=== PATIENT | female | born 1995 | race Caucasian/White ===

== ENCOUNTER 2017-08-26 06:49 | Day surgery (SDC) | payer BC ==
[~2017-08-26 06:49] MED LIST: Lactated Ringers 1,000 ML IV SCH; Sodium Chloride 0.9% 10 ML Syringe FLUSH PRN; Sodium Chloride 0.9% 2.5 ML Syringe FLUSH PRN; ceFAZolin 2 GM in Premix Bag 1 BAG IV ONE
[2017-08-26] MEDS ORDERED: Scopolamine 1.5 MG Transdermal Patch TRDERM PRN (07:35)
--- NOTE | 2017-08-26 07:37 | PCM.PREANE ---
Preanesthetic Assessment - Anesthesia/Transfusion/Family Hx Anesthesia History: Prior Anesthesia Without Reaction Family History of Anesthesia Reaction: No Transfusion History: No Prior Transfusion(s) Intubation History: Unknown - Review of Systems General: No Symptoms Pulmonary: No Symptoms Cardiovascular: No Symptoms Gastrointestinal: Abdominal Pain Neurological: No Symptoms Other: Reports: None - Physical Assessment O2 Sat by Pulse Oximetry: 96 Respiratory Rate: 16 Vital Signs: Last Vital Signs Temp 36.2 C 08/26/17 07:10 Pulse 108 H 08/26/17 07:10 Resp 16 08/26/17 07:10 BP 169/97 H 08/26/17 07:10 Pulse Ox 96 08/26/17 07:10 Height: 1.68 m Weight: 94.801 kg ASA Class: 2 Mental Status: Alert & Oriented x3 Airway Class: Mallampati = 2 Dentition: Reports: Normal Dentition Thyro-Mental Finger Breadths: 3 Mouth Opening Finger Breadths: 2 ROM/Head Extension: Full Lungs: Clear to Auscultation, Normal Respiratory Effort Cardiovascular: Regular Rate, Regular Rhythm - Allergies Allergies/Adverse Reactions: Allergies Allergy/AdvReac Type Severity Reaction Status Date / Time No Known Allergies Allergy Verified 08/23/17 12:30 - Blood Blood Available: No - Anesthesia Plan Pre-Op Medication Ordered: None - Acknowledgements Anesthesia Type Planned: General Anesthesia Pt an Appropriate Candidate for the Planned Anesthesia: Yes Alternatives and Risks of Anesthesia Discussed w Pt/Guardian: Yes Pt/Guardian Understands and Agrees with Anesthesia Plan: Yes PreAnesthesia Questionnaire HEENT History: Reports: Other (See Below) Other HEENT History: wears glasses/contacts Gastrointestinal History: Reports: Other (See Below) (cholecystitis) Psychiatric History: Reports: Anxiety Endocrine/Metabolic History: Reports: Obesity/BMI 30+ Dermatologic History: Reports: Psoriasis - Past Surgical History Head Surgeries/Procedures: Reports: None HEENT Surgical History: Reports: Oral Surgery Other HEENT Surgeries/Procedures: wisdom teeth extraction - SUBSTANCE USE Smoking Status *Q: Never Smoker Recreational Drug Use History: No - HOME MEDS Home Medications: Home Meds Norethindrone-Ethinyl Estrad [Ortho-Novum 1-35-28 Tablet] 1 tab PO ASDIRECTED [History] buPROPion [Wellbutrin XL] 150 mg PO DAILY 08/23/17 [History] - CURRENT (IN HOUSE) MEDS Current Meds: Current Medications Lactated Ringer's (Ringers, Lactated) 1,000 mls @ 125 mls/hr IV ASDIRECTED PARKER Last Admin: 08/26/17 07:15 Dose: 125 mls/hr Sodium Chloride (Saline Flush) 10 ml FLUSH ASDIRECTED PRN PRN Reason: Keep Vein Open Sodium Chloride (Saline Flush) 2.5 ml FLUSH ASDIRECTED PRN PRN Reason: Keep Vein Open Discontinued Medications Cefazolin Sodium/Dextrose 2 gm (/ Premix) 50 mls @ 100 mls/hr IV ONETIME ONE Stop: 08/25/17 17:10
[2017-08-26] MEDS ORDERED: Lidocaine 2% 5 ML SDV ONE (07:38)
[2017-08-26] MEDS ORDERED: Midazolam 1 MG/ML 2 ML SDV ONE (07:38)
[2017-08-26] MEDS ORDERED: fentaNYL 100 MCG/2 ML SDV ONE ×3 (07:38→09:26)
[2017-08-26] MEDS ORDERED: Propofol 200 MG/20 ML SDV ONE ×2 (07:38→09:00)
[2017-08-26] MEDS ORDERED: Neostigmine Methylsulfate 1 MG/ML 5 ML Syringe ONE (07:39)
[2017-08-26] MEDS ORDERED: Ondansetron 4 MG/2 ML SDV ONE (07:39)
[2017-08-26] MEDS ORDERED: Ketorolac 30 MG/ML SDV ONE (07:39)
[2017-08-26] MEDS ORDERED: Rocuronium 10 MG/ML 10 ML Syringe ONE (07:39)
[2017-08-26] MEDS ORDERED: Scopolamine 1.5 MG Transdermal Patch ONE (07:42)
[2017-08-26] MEDS ORDERED: HYDROmorphone 2 MG/ML Syringe ONE (07:46)
[2017-08-26] MEDS ORDERED: fentaNYL 100 MCG/2 ML SDV IVPUSH PRN (08:58)
[2017-08-26] MEDS ORDERED: Acetaminophen/oxyCODONE 325-5 MG Tab PO PRN (10:28)
[2017-08-26] MEDS ORDERED: Cyclobenzaprine 10 MG Tab PO PRN (10:28)
[2017-08-26] MEDS ORDERED: HYDROmorphone 2 MG/ML Syringe IVPUSH ONE (10:30)
--- NOTE | 2017-08-26 10:30 | PCM.OPNOTE ---
- General Post-Op/Procedure Note Date of Surgery/Procedure: 08/26/17 Operative Procedure(s): laparoscopic cholecystectomy Findings: Mildly distended gallbladder with minimal omental attachments Pre Op Diagnosis: biliary dyskinesia Post-Op Diagnosis: same Anesthesia Technique: General ET Tube Primary Surgeon: Darcy Carrasco Fluid Replacement, Intraop: 2,650 Output, Urine Amount: 130 EBL in mLs: 10 Condition: Good
[2017-08-26] MEDS ORDERED: Labetalol 100 MG/20 ML MDV ONE (11:00)
[2017-08-26] MEDS ORDERED: Labetalol 100 MG/20 ML MDV IVPUSH ONE (11:05)
--- NOTE | 2017-08-26 13:00 | OR ---
SURGEON: BRYAN HARVEY MD DATE OF PROCEDURE: 08/26/2017 PREOPERATIVE DIAGNOSIS: Biliary dyskinesia. POSTOPERATIVE DIAGNOSIS: Biliary dyskinesia. PROCEDURE PERFORMED: Laparoscopic cholecystectomy. ANESTHESIA: General endotracheal anesthesia. FLUIDS: 2650 mL crystalloid. URINE OUTPUT: 130 mL. ESTIMATED BLOOD LOSS: 10 mL. FINDINGS: Mildly distended gallbladder with minimal omental adhesions. COMPLICATIONS: None. INDICATIONS: The patient is a 21-year-old female, who presented to clinic with a HIDA scan showing an ejection fraction of 4% consistent with biliary dyskinesia. A decision was made to proceed with removal of her gallbladder. We discussed the laparoscopic and open approaches. I will attempt this laparoscopically, but should I be unable to perform it safely, I will convert to open. We discussed the expected perioperative course as well as the risks including bleeding, infection, or damage to surrounding structures. The patient verbalized understanding and wishes to proceed. PROCEDURE IN DETAIL: The patient was brought into the operating room and placed on the OR table in supine position. A time-out was completed verifying the patient's name, age, date of , allergies, and procedure to be performed. General endotracheal anesthesia was induced. The patient's left arm was tucked at her side and the footboard placed at the end of the bed. A Salazar catheter was placed. The abdomen was prepped and draped in usual standard fashion. The infraumbilical fold was anesthetized with 0.5% Marcaine plain. An 11 blade was used to make a horizontal incision along the infraumbilical fold. Cautery was used to dissect down to the subcutaneous fat. The S retractors and [place] retractors were used to dissect down to the level of fascia. This was difficult given that the patient had a large amount of subcutaneous fat. The fascia was grasped with Attila's and incised using Vivar scissors. I then dissected down to the level of the peritoneum. This was grasped with 2 tonsil retractors, elevated, and incised. A 12 mm Kash trocar was then placed into the abdomen. The abdomen was allowed to insufflate. An 0 Vicryl suture was placed on either side of the fascia and used to secure the Kash trocar in place. The patient was then placed into reverse Trendelenburg position and airplaned slightly to the left. Three trocars were placed in the following locations, one in epigastric area, one in the right flank, and one in the right subcostal area along the midclavicular line. The dome of the gallbladder was grasped with an atraumatic grasper through the right lateral port and elevated above the dome of the liver. There were some small omental adhesions that were taken down with gentle dissection. The infundibulum was then grasped with an atraumatic grasper and retracted to right and inferiorly. Using a combination of gentle blunt dissection, I was able to take down the peritoneal attachments around the infundibulum and expose the cystic duct and artery. Once my critical view was achieved, I doubly clipped and ligated both the cystic duct and artery. After ligating the cystic artery, one of my proximal clips fell off. I attempted to place a 2nd clip below the clip that was still on the artery, but was only able to get this fpc across. No bleeding was noted and the decision was made to defer any further attempts at trying to place more clips given the risk for damaging the artery. Electrocautery was then used to dissect the gallbladder off the gallbladder fossa. While doing this, a small rent was made in the gallbladder and bile was spilled into the abdomen. Once the gallbladder was free of the liver bed, it was placed in an EndoCatch bag and removed through the 12 mm port. This was replaced and the abdomen allowed to re-insufflate. I then inspected the area of my clips. No bleeding was noted along my clips and they appeared to be secure. The operative site was hemostatic. The abdomen was irrigated with 2 L of normal saline until it ran clear. The ports were then removed under direct visualization. The abdomen was allowed to desufflate. The fascia at the infraumbilical site was closed with interrupted 0 Vicryl sutures. The skin was then closed with interrupted 3-0 Vicryl in the subcutaneous fat and a running subcuticular 4-0 Monocryl stitch. The 5 mm port sites were closed with interrupted 4-0 Monocryl. Steri-Strips and sterile dressings were applied. The patient was transferred to the PACU in stable condition. STANLEY LOZANO /[id number]
== END 2017-08-26 12:55 | disposition home or self-care (01) ==
LOC: MW.SDS 06:49
PROVIDERS: ATTEND Surgery
DX: K81.1 Chronic cholecystitis (principal); F41.9 Anxiety disorder, unspecified; E66.9 Obesity, unspecified; Z68.54 Body mass index [BMI] pediatric, 95th percentile for age to less than 120% of the 95th percentile for age; Z98.890 Other specified postprocedural states; Z79.3 Long term (current) use of hormonal contraceptives; Z79.899 Other long term (current) drug therapy
CPT/HCPCS: 47562; 81025; A9270; J1170; J2250; J2405; J3010; J7120; 00790; 88304; J1885; J2704

== ENCOUNTER 2018-02-11 16:59 | Emergency (ER) | payer BC ==
[2018-02-11] MEDS ORDERED: Sodium Chloride 0.9% 1,000 ML IV ONE (17:51)
[2018-02-11 18:35] LABS: CHLORIDE,CL 103 mmol/L (98-107); SODIUM,NA 139 mmol/L (136-145)
--- NOTE | 2018-02-11 19:18 | EDM.PDOC ---
ED HPI GENERAL MEDICAL PROBLEM - General Chief Complaint: Abdominal Pain Stated Complaint: ABD PAIN Time Seen by Provider: 02/11/18 17:40 Source of Information: Reports: Patient History Limitations: Reports: No Limitations - History of Present Illness INITIAL COMMENTS - FREE TEXT/NARRATIVE: HISTORY AND PHYSICAL: History of present illness: [Patient comes to the emergency room complaining of lower abdominal discomfort and loose stools. She returned home 48 hours ago after a two-week trip to [place] to visit family. She visited the country of [place], [place], and [facility]. She primarily visited high tourist areas. For the past 24 hours she's had some achy crampy discomfort in her low abdomen and loose stools. They were foul-smelling but this has improved. No blood in her stools. She spent feverish at times but this resolves with Advil or Tylenol. She has not had any nausea or vomiting. Her appetite has been less due to her symptoms. No headaches or sore throat. No runny nose. Denies chest pain shortness of breath difficulty breathing and cough. No swelling to her feet or lower legs. She feels a little dehydrated and kind of weak. She took one dose of Pepto-Bismol which did not improve her symptoms yesterday. Describes her abdominal pain as similar to a menstrual period and improves after having a bowel movement. Had her gallbladder removed August 2017. Patient does not drink alcohol or smoke.] Review of systems: As per history of present illness and below otherwise all systems reviewed and negative. Past medical history: As per history of present illness and as reviewed below otherwise noncontributory. Surgical history: As per history of present illness and as reviewed below otherwise noncontributory. Social history: No reported history of drug or alcohol abuse. Family history: As per history of present illness and as reviewed below otherwise noncontributory. Physical exam: HEENT: Atraumatic, normocephalic. Oral mucous membranes are pink and slightly dry. Neck supple, no lymphadenopathy. Eyes are clear and anicteric. Lungs: Clear to auscultation, breath sounds equal bilaterally. Heart: S1S2, regular, negative for clicks, rubs, or JVD. Abdomen: Bowel sounds are present throughout. Abdomen is soft and nondistended. She is mildly tender over the right upper quadrant. No masses guarding or rebound. No CVA tenderness. Pelvis: Stable nontender. Genitourinary: Deferred. Rectal: Deferred. Extremities: Atraumatic, negative for cords or calf pain. Swelling or cyanosis to feet or lower legs. Neurovascular unremarkable. Neuro: Awake, alert, oriented. Motor and sensory unremarkable throughout. Exam nonfocal. Diagnostics: [CBC, CMP, urinalysis, urine , stool culture for Campylobacter and Shigella.] Therapeutics: [1 L normal saline] Impression: [Loose stools] Plan: [Lab results show white blood cell 8.27, hemoglobin 14.1. CMP is largely unremarkable other than liver enzymes. AST 42. ALT 82. Alkaline phosphatase 169. Bilirubin 0.3. Urinalysis clear and urine is negative. Discussed with patient that her labs are largely unremarkable and symptoms are consistent with those of traveler's diarrhea. Recommend she take a stool sample and bring it in when available. Will start azithromycin 500 mg daily for the next 5 days. Close follow-up with primary care to recheck elevated liver enzymes. Strictured her precautions are reviewed with the patient she is in agreement with today's discussion. Mom is at bedside and all of her questions are answered and concerns are addressed.] Definitive disposition and diagnosis as appropriate pending reevaluation and review of above. RLQ Pain Score (Numeric/FACES): 1 - Related Data Allergies Allergy/AdvReac Type Severity Reaction Status Date / Time No Known Allergies Allergy Verified 02/11/18 17:12 Home Meds: Home Meds Norethindrone-Ethinyl Estrad [Ortho-Novum 1-35-28 Tablet] 1 tab PO ASDIRECTED [History] buPROPion [Wellbutrin XL] 150 mg PO DAILY 08/23/17 [History] Past Medical History HEENT History: Reports: Other (See Below) Other HEENT History: wears glasses/contacts Gastrointestinal History: Reports: Other (See Below) (cholecystitis) Psychiatric History: Reports: Anxiety Endocrine/Metabolic History: Reports: Obesity/BMI 30+ Dermatologic History: Reports: Psoriasis - Past Surgical History Head Surgeries/Procedures: Reports: None HEENT Surgical History: Reports: Oral Surgery Other HEENT Surgeries/Procedures: wisdom teeth extraction GI Surgical History: Reports: Cholecystectomy Social & Family History - Family History Family Medical History: Noncontributory - Tobacco Use Smoking Status *Q: Never Smoker - Caffeine Use Caffeine Use: Reports: Coffee - Recreational Drug Use Recreational Drug Use: No ED ROS GENERAL - Review of Systems Review Of Systems: ROS reveals no pertinent complaints other than HPI. ED EXAM, GI/ABD - Physical Exam Exam: See Below Course - Vital Signs Last Recorded V/S: Last Vital Signs Temp 96.2 F 02/11/18 17:12 Pulse 119 H 02/11/18 17:12 Resp 18 02/11/18 17:12 BP 155/95 H 02/11/18 17:12 Pulse Ox 98 02/11/18 17:12 - Orders/Labs/Meds Orders: Active Orders 24 hr Category Date Time Status CULTURE STOOL + CAMPY+SHIGATOX [RM] Stat Lab 02/11/18 17:42 Ordered HCG QUALITATIVE,URINE [URCHEM] Stat Lab 02/11/18 17:55 Ordered UA W/MICROSCOPIC [URIN] Stat Lab 02/11/18 17:55 Ordered Labs: Laboratory Tests 02/11/18 02/11/18 02/11/18 Range/Units 17:49 17:49 17:55 WBC 8.27 (4.0-11.0) K/uL RBC 5.06 (4.30-5.90) M/uL Hgb 14.1 (12.0-16.0) g/dL Hct 41.9 (36.0-46.0) % MCV 82.8 (80.0-98.0) fL MCH 27.9 (27.0-32.0) pg MCHC 33.7 (31.0-37.0) g/dL RDW Std Deviation 40.4 (28.0-62.0) fl RDW Coeff of Ester 14 (11.0-15.0) % Plt Count 272 (150-400) K/uL MPV 9.70 (7.40-12.00) fL Neut % (Auto) 79.1 (48.0-80.0) % Lymph % (Auto) 11.9 L (16.0-40.0) % Marshall % (Auto) 8.5 (0.0-15.0) % Eos % (Auto) 0.4 (0.0-7.0) % Baso % (Auto) 0.1 (0.0-1.5) % Neut # (Auto) 6.6 H (1.4-5.7) K/uL Lymph # (Auto) 1.0 (0.6-2.4) K/uL Marshall # (Auto) 0.7 (0.0-0.8) K/uL Eos # (Auto) 0.0 (0.0-0.7) K/uL Baso # (Auto) 0.0 (0.0-0.1) K/uL Nucleated RBC % 0.0 /100WBC Nucleated RBCs # 0 K/uL Sodium 139 (136-145) mmol/L Potassium 3.8 (3.5-5.1) mmol/L Chloride 103 (98-107) mmol/L Carbon Dioxide 23.5 (21.0-32.0) mmol/L BUN 7 (7.0-18.0) mg/dL Creatinine 0.9 (0.6-1.0) mg/dL Est Cr Clr Drug Dosing 89.72 mL/min Estimated GFR (MDRD) > 60.0 ml/min Glucose 97 (74-106) mg/dL Calcium 9.3 (8.5-10.1) mg/dL Total Bilirubin 0.3 (0.2-1.0) mg/dL AST 42 H (15-37) IU/L ALT 82 H (14-63) IU/L Alkaline Phosphatase 169 H (46-116) U/L Total Protein 7.7 (6.4-8.2) g/dL Albumin 3.4 (3.4-5.0) g/dL Globulin 4.3 H (2.0-3.5) g/dL Albumin/Globulin Ratio 0.8 L (1.3-2.8) Urine Color YELLOW Urine Appearance CLEAR Urine pH 6.5 (5.0-8.0) Ur Specific [place] 1.010 (1.001-1.035) Urine Protein NEGATIVE (NEGATIVE) mg/dL Urine Glucose (UA) NEGATIVE (NEGATIVE) mg/dL Urine Ketones NEGATIVE (NEGATIVE) mg/dL Urine Occult Blood NEGATIVE (NEGATIVE) Urine Nitrite NEGATIVE (NEGATIVE) Urine Bilirubin NEGATIVE (NEGATIVE) Urine Urobilinogen 0.2 (<2.0) EU/dL Ur Leukocyte Esterase NEGATIVE (NEGATIVE) Urine RBC 0-1 (0-2/HPF) Urine WBC 0-1 (0-5/HPF) Ur Epithelial Cells RARE (NONE-FEW) Urine Bacteria RARE (NEGATIVE) Urine HCG, Qual (NEGATIVE) 02/11/18 Range/Units 17:55 WBC (4.0-11.0) K/uL RBC (4.30-5.90) M/uL Hgb (12.0-16.0) g/dL Hct (36.0-46.0) % MCV (80.0-98.0) fL MCH (27.0-32.0) pg MCHC (31.0-37.0) g/dL RDW Std Deviation (28.0-62.0) fl RDW Coeff of Ester (11.0-15.0) % Plt Count (150-400) K/uL MPV (7.40-12.00) fL Neut % (Auto) (48.0-80.0) % Lymph % (Auto) (16.0-40.0) % Marshall % (Auto) (0.0-15.0) % Eos % (Auto) (0.0-7.0) % Baso % (Auto) (0.0-1.5) % Neut # (Auto) (1.4-5.7) K/uL Lymph # (Auto) (0.6-2.4) K/uL Marshall # (Auto) (0.0-0.8) K/uL Eos # (Auto) (0.0-0.7) K/uL Baso # (Auto) (0.0-0.1) K/uL Nucleated RBC % /100WBC Nucleated RBCs # K/uL Sodium (136-145) mmol/L Potassium (3.5-5.1) mmol/L Chloride (98-107) mmol/L Carbon Dioxide (21.0-32.0) mmol/L BUN (7.0-18.0) mg/dL Creatinine (0.6-1.0) mg/dL Est Cr Clr Drug Dosing mL/min Estimated GFR (MDRD) ml/min Glucose (74-106) mg/dL Calcium (8.5-10.1) mg/dL Total Bilirubin (0.2-1.0) mg/dL AST (15-37) IU/L ALT (14-63) IU/L Alkaline Phosphatase (46-116) U/L Total Protein (6.4-8.2) g/dL Albumin (3.4-5.0) g/dL Globulin (2.0-3.5) g/dL Albumin/Globulin Ratio (1.3-2.8) Urine Color Urine Appearance Urine pH (5.0-8.0) Ur Specific [place] (1.001-1.035) Urine Protein (NEGATIVE) mg/dL Urine Glucose (UA) (NEGATIVE) mg/dL Urine Ketones (NEGATIVE) mg/dL Urine Occult Blood (NEGATIVE) Urine Nitrite (NEGATIVE) Urine Bilirubin (NEGATIVE) Urine Urobilinogen (<2.0) EU/dL Ur Leukocyte Esterase (NEGATIVE) Urine RBC (0-2/HPF) Urine WBC (0-5/HPF) Ur Epithelial Cells (NONE-FEW) Urine Bacteria (NEGATIVE) Urine HCG, Qual NEGATIVE (NEGATIVE) Meds: Medications Discontinued Medications Generic Name Dose Route Start Last Admin Trade Name Freq PRN Reason Stop Dose Admin Sodium Chloride 1,000 mls @ 999 mls/hr 02/11/18 17:51 02/11/18 18:06 Normal Saline IV 02/11/18 18:51 999 mls/hr STAT ONE Administration Departure - Departure Time of Disposition: 19:17 Disposition: Home, Self-Care 01 Condition: Good Clinical Impression: Loose stools - Discharge Information Instructions: Diarrhea, Adult, [id number] Referrals: PCP,None [Primary Care Provider] - Forms: ED Department Discharge Additional Instructions: The following information is given to patients seen in the emergency department who are being discharged to home. This information is to outline your options for follow-up care. We provide all patients seen in our emergency department with a follow-up referral. The need for follow-up, as well as the timing and circumstances, are variable depending upon the specifics of your emergency department visit. If you don't have a primary care physician on staff, we will provide you with a referral. We always advise you to contact your personal physician following an emergency department visit to inform them of the circumstance of the visit and for follow-up with them and/or the need for any referrals to a consulting specialist. The emergency department will also refer you to a specialist when appropriate. This referral assures that you have the opportunity for follow-up care with a specialist. All of these measure are taken in an effort to provide you with optimal care, which includes your follow-up. Under all circumstances we always encourage you to contact your private physician who remains a resource for coordinating your care. When calling for follow-up care, please make the office aware that this follow-up is from your recent emergency room visit. If for any reason you are refused follow-up, please contact the [facility] emergency department at and asked to speak to the emergency department charge nurse. [facility] [address] [place] [id number] Follow-up with your primary care provider or at the clinic listed above in 4-5 days. Take antibiotics as prescribed. Push fluids. Return to ER as needed as discussed. - My Orders Last 24 Hours: My Active Orders 02/11/18 17:42 CULTURE STOOL + CAMPY+SHIGATOX [RM] Stat 02/11/18 17:55 HCG QUALITATIVE,URINE [URCHEM] Stat UA W/MICROSCOPIC [URIN] Stat - Assessment/Plan Last 24 Hours: My Active Orders 02/11/18 17:42 CULTURE STOOL + CAMPY+SHIGATOX [RM] Stat 02/11/18 17:55 HCG QUALITATIVE,URINE [URCHEM] Stat UA W/MICROSCOPIC [URIN] Stat
== END 2018-02-11 19:31 | disposition home or self-care (01) ==
LOC: MW.ED 16:59
DX: R19.7 Diarrhea, unspecified (principal); R10.31 Right lower quadrant pain; F41.9 Anxiety disorder, unspecified; Z79.899 Other long term (current) drug therapy
CPT/HCPCS: 36415; 80053; 81001; 81025; 85025; 96360; 99284; J7040; 99283